=== PATIENT | female | born 1985 | race Asian ===

== ENCOUNTER 2017-06-17 04:14 | Emergency (ER) | payer MEDICAID ==
[~2017-06-17] VITALS: Ht 162.6 cm; Wt 89.8 kg
[2017-06-17 05:41] VITALS: BP 110/72
== END 2017-06-17 05:41 | disposition home or self-care (01) ==
LOC: ED 04:14
DX: F43.0 Acute stress reaction (principal); F41.9 Anxiety disorder, unspecified

== ENCOUNTER 2018-09-05 18:22 | Emergency (ER) | payer OTHER ==
[~2018-09-05] VITALS: Ht 162.6 cm; Wt 88.5 kg
[2018-09-05 18:37] VITALS: BP 143/102
== END 2018-09-05 19:55 | disposition home or self-care (01) ==
LOC: ED 18:22
DX: B34.9 Viral infection, unspecified (principal); R42 Dizziness and giddiness; F41.9 Anxiety disorder, unspecified; Z98.890 Other specified postprocedural states
CPT/HCPCS: 82962

== ENCOUNTER 2019-04-05 19:46 | Emergency (ER) | payer OTHER ==
[~2019-04-05] VITALS: Ht 162.6 cm; Wt 93.2 kg
[2019-04-05 21:29] VITALS: BP 129/62
== END 2019-04-05 21:29 | disposition home or self-care (01) ==
LOC: ED 19:46
DX: L30.9 Dermatitis, unspecified (principal); F41.9 Anxiety disorder, unspecified; Z98.890 Other specified postprocedural states

== ENCOUNTER 2020-03-02 12:28 | Emergency (ER) | payer OTHER, SELFPAY ==
[~2020-03-02] VITALS: Ht 160 cm; Wt 89.8 kg
[2020-03-02 12:30] VITALS: Ht 160 cm; Wt 89.8 kg
[2020-03-02 14:20] VITALS: BP 129/95
== END 2020-03-02 14:20 | disposition home or self-care (01) ==
LOC: ED 12:28
DX: R53.1 Weakness (principal); R50.9 Fever, unspecified; R05 Cough; Z20.828 Contact with and (suspected) exposure to other viral communicable diseases
CPT/HCPCS: U0003-CS